=== PATIENT | male | born 1970 | race Caucasian/White ===

== ENCOUNTER 2024-02-12 13:58 | Inpatient (IN) | payer MEDICAID, OTHER ==
[~2024-02-12] VITALS: Ht 175.3 cm; Wt 95.8 kg
[2024-02-12 14:36] LABS: Basophils # (auto) 0 10 ^3/uL (0-0.2); Basophils % (auto) 0.1 % (0.0-2.0); Eosinophils # (auto) 0 10 ^3/uL (0-0.8); Eosinophils % (auto) 0.6 % (0.0-7.0); Hematocrit 44.9 % (41.0-53.0); Hemoglobin 14.9 g/dL (13.5-17.5); Lymphocytes # (auto) 0.6 10 ^3/uL (0.4-5.4); Lymphocytes % (auto) 7.8 % (10.0-50.0); Mean Corpuscular Hemoglobin 28.7 pg (28.0-32.0); Mean Corpuscular Hgb Conc. 33.1 g/dL (32.0-36.0); Mean Corpuscular Volume 86.8 fL (80.0-100.0); Monocytes # (auto) 0.7 10 ^3/uL (0-1.3); Monocytes % (auto) 9.9 % (0.0-12.0); Neutrophils # (auto) 6.1 10 ^3/uL (1.6-8.6); Neutrophils % (auto) 81.6 % (37.0-80.0); Red Blood Cells 5.18 10^6/uL (4.5-5.90); Red Cell Distribution Width 14.7 % (11.8-14.3); White Blood Cell 7.5 10^3/uL (4.4-10.8)
[2024-02-12 14:48] LABS: Chloride 99 mmol/L (98-107); Potassium 4.3 mmol/L (3.5-5.1); Sodium 130 mmol/L (136-145)
[2024-02-12 14:49] LABS: Anion Gap 12 (5-15); Carbon Dioxide 19 mmol/L (20-30)
[2024-02-12 14:50] LABS: Calcium 8.7 mg/dL (8.7-10.4)
[2024-02-12 14:54] LABS: BUN/Creatinine Ratio 15.9 (10.0-20.0); Blood Urea Nitrogen 46 mg/dL (9-23); Glucose 78 mg/dL (74-106)
[2024-02-12 14:55] LABS: Magnesium 2.1 mg/dL (1.6-2.6)
[2024-02-12] MEDS ORDERED: ONDANSETRON HCL 4 MG/2 ML VIAL IV PRN (23:30)
[2024-02-13] VITALS (7 sets, daily range): BP systolic 124–173; BP diastolic 84–115; PULSE 82–109; RESP 10–21; TEMP 97.5–98.2; O2SAT 95–100
[2024-02-13] MEDS: SODIUM CHLORIDE 0.9% 1,000 ML IV ONE (03:14)
[2024-02-13] MEDS: cefTRIAXone 1GM/50ML D5W 50 ML IV ONE (03:15)
[2024-02-13 03:28] LABS: Urine Bacteria MANY /hpf (None Seen); Urine Blood 3+ /uL (Negative); Urine Clarity Ex.Turbid (Clear); Urine Color Dark-Brown (Yellow); Urine Protein, UAD 2+ (Negative); Urine Specific Gravity 1.009 (1.001-1.035); Urine Urobilinogen Normal (Negative); Urine WBC 2455 /hpf (0 - 3); Urine WBC Clumps PRESENT /hpf (None Seen)
[2024-02-13 03:39] LABS: Amphetamine Screen, Urine Pos (NEGATIVE); Barbiturate Scree,Urine Neg (NEGATIVE); Benzodiazephine Screen, Urine Neg (NEGATIVE); Cannabinoid Screen, Urine Pos (NEGATIVE); Cocaine Screen, Urine Neg (NEGATIVE); Opiate Scree,Urine Neg (NEGATIVE); Phencyclidine Screen, Urine Neg (NEGATIVE)
[2024-02-13 05:10] LABS: Basophils # (auto) 0 10 ^3/uL (0-0.2); Basophils % (auto) 0.1 % (0.0-2.0); Eosinophils # (auto) 0 10 ^3/uL (0-0.8); Eosinophils % (auto) 0.2 % (0.0-7.0); Hematocrit 43.4 % (41.0-53.0); Hemoglobin 14.3 g/dL (13.5-17.5); Lymphocytes # (auto) 0.7 10 ^3/uL (0.4-5.4); Lymphocytes % (auto) 10.4 % (10.0-50.0); Mean Corpuscular Hemoglobin 28.8 pg (28.0-32.0); Mean Corpuscular Volume 87.3 fL (80.0-100.0); Monocytes # (auto) 0.6 10 ^3/uL (0-1.3); Neutrophils # (auto) 5.8 10 ^3/uL (1.6-8.6); Neutrophils % (auto) 80.3 % (37.0-80.0); Red Blood Cells 4.98 10^6/uL (4.5-5.90); Red Cell Distribution Width 14.6 % (11.8-14.3); White Blood Cell 7.2 10^3/uL (4.4-10.8)
[2024-02-13 05:27] LABS: Alanine Aminotransferase 23 U/L (7-40); Albumin 4.1 g/dL (3.2-4.8); Alkaline Phosphatase 108 U/L (46-116); Anion Gap 17 (5-15); Aspartate Aminotransferase 24 U/L (13-40); BUN/Creatinine Ratio 12.9 (10.0-20.0); Blood Urea Nitrogen 46 mg/dL (9-23); Calcium 8.7 mg/dL (8.7-10.4); Carbon Dioxide 18 mmol/L (20-30); Chloride 98 mmol/L (98-107); Glucose 80 mg/dL (74-106); Potassium 4.2 mmol/L (3.5-5.1); Sodium 133 mmol/L (136-145)
[2024-02-13 05:28] LABS: Bilirubin, Total 0.3 mg/dL (0.2-1.0); Total Protein 8.3 g/dL (5.7-8.2)
[2024-02-13] MEDS ORDERED: CIPR500T4 PO (09:06)
[2024-02-13] MEDS ORDERED: PREG150C63 PO (09:06)
[2024-02-13] MEDS ORDERED: BACL20TA PO (09:06)
[2024-02-13] MEDS ORDERED: MIDO5TAB4 PO (09:06)
[2024-02-13] MEDS ORDERED: FLUO20CA90 PO (09:06)
[2024-02-13] MEDS: SODIUM CHLORIDE 0.9% 1,000 ML IV SCH (21:00)
[2024-02-14] MEDS: cefTRIAXone 1GM/50ML D5W 50 ML IV SCH (03:06)
[2024-02-14 05:00] VITALS: BP 104/60; PULSE 90; RESP 20; TEMP 97.6; O2SAT 96
[2024-02-14] MEDS: HYDROcodone-ACET 5/325MG TAB PO PRN (05:08)
[2024-02-14 07:30] VITALS: TEMP 36.4
[2024-02-14 08:33] VITALS: BP 121/72; PULSE 91; RESP 15; TEMP 97.4; O2SAT 95
[2024-02-14 13:00] VITALS: BP 82/42; PULSE 80; RESP 15; TEMP 97.3; O2SAT 96
[2024-02-14 15:37] LABS: Chloride 105 mmol/L (98-107); Potassium 4.4 mmol/L (3.5-5.1); Sodium 136 mmol/L (136-145)
[2024-02-14 15:38] LABS: Anion Gap 16 (5-15); Carbon Dioxide 15 mmol/L (20-30)
[2024-02-14 15:39] LABS: Calcium 8.9 mg/dL (8.5-10.1)
[2024-02-14 15:43] LABS: BUN/Creatinine Ratio 14.8 (10.0-20.0); Blood Urea Nitrogen 47 mg/dL (9-23); Glucose 100 mg/dL (74-106)
[2024-02-14 17:00] VITALS: BP 78/33; PULSE 79; RESP 15; TEMP 97.4; O2SAT 93
[2024-02-14 21:00] VITALS: BP 110/67; PULSE 80; RESP 17; TEMP 97.6; O2SAT 96
[2024-02-15 01:00] VITALS: BP 120/71; PULSE 83; RESP 17; TEMP 98; O2SAT 96
[2024-02-15 05:00] VITALS: BP 133/80; PULSE 96; RESP 18; TEMP 97.3; O2SAT 98
[2024-02-15 09:00] VITALS: BP 123/76; PULSE 97; RESP 20; O2SAT 96
[2024-02-15] MEDS ORDERED: LEVO750T40 PO (11:59)
[2024-02-15 12:53] VITALS: BP 136/84; PULSE 98; RESP 20; TEMP 98.7; O2SAT 98
[2024-02-15 20:00] VITALS: RESP 20
[2024-02-15 21:00] VITALS: BP 125/81; PULSE 102; RESP 18; TEMP 98.1; O2SAT 94
[2024-02-16 05:00] VITALS: BP 194/115; PULSE 90; RESP 20; TEMP 97.4; O2SAT 98
[2024-02-16] MEDS: ACETAMINOPHEN 325 MG TAB PO PRN (05:42)
[2024-02-16 06:30] VITALS: BP 145/100; PULSE 77
[2024-02-16 09:00] VITALS: BP 122/50; PULSE 81; RESP 18; TEMP 97.5; O2SAT 93
[2024-02-16] MEDS ORDERED: VANCOMYCIN PER PHARMACY 0 MG IV SCH (09:15)
[2024-02-16] MEDS: FLUoxetine HCL 20 MG CAP PO SCH (10:13)
[2024-02-16] MEDS: BACLOFEN 10 MG TAB PO PRN (10:13)
[2024-02-16] MEDS: VANCOMYCIN 1GM/200ML 200 ML IV ONE (10:15)
[2024-02-16] MEDS: levoFLOXacin 500MG 100 ML IV SCH (12:33)
[2024-02-16 13:00] VITALS: BP 159/117; PULSE 83; RESP 22; TEMP 97.8; O2SAT 95
[2024-02-16] MEDS: BACLOFEN 10 MG TAB PO SCH (14:18)
[2024-02-16] MEDS: PREGABALIN CAPSULE 75 MG CAP PO SCH (14:18)
[2024-02-16 15:19] LABS: Potassium 3.6 mmol/L (3.5-5.1)
[2024-02-16 15:21] LABS: Calcium 8.8 mg/dL (8.7-10.4)
[2024-02-16 15:25] LABS: BUN/Creatinine Ratio 12.6 (10.0-20.0)
[2024-02-16 15:27] LABS: Albumin 3.7 g/dL (3.2-4.8)
[2024-02-16 15:28] LABS: Phosphorus 1.7 mg/dL (2.4-5.1)
[2024-02-16] MEDS ORDERED: VANCOMYCIN 750mg/150ml 150 ML IV SCH (16:00)
[2024-02-16 17:00] VITALS: BP 120/71; PULSE 77; RESP 18; TEMP 97.5; O2SAT 96
[2024-02-16] MEDS: VANCOMYCIN 750mg/150ml 150 ML IV SCH (22:11)
[2024-02-17 05:14] VITALS: BP 148/95; PULSE 82; RESP 18; TEMP 97.6; O2SAT 94
[2024-02-17 06:13] LABS: Potassium 3.8 mmol/L (3.5-5.1)
[2024-02-17 06:14] LABS: Calcium 8.7 mg/dL (8.5-10.1)
[2024-02-17 06:19] LABS: BUN/Creatinine Ratio 11.2 (10.0-20.0)
[2024-02-17 06:21] LABS: Albumin 3.8 g/dL (3.2-4.8); Phosphorus 2.1 mg/dL (2.4-5.1)
[2024-02-17 08:05] VITALS: BP 137/89; PULSE 84; RESP 20; TEMP 97.7; O2SAT 94
[2024-02-17 12:10] VITALS: BP 121/77; PULSE 77; RESP 20; TEMP 97.4; O2SAT 96
[2024-02-17 16:10] VITALS: BP 99/58; PULSE 81; RESP 20; TEMP 97.6; O2SAT 96
[2024-02-17 18:00] VITALS: BP 110/70; PULSE 89; RESP 17; TEMP 98.1; O2SAT 95
[2024-02-18 05:00] VITALS: BP 112/77; PULSE 75; RESP 19; TEMP 98.3; O2SAT 92
[2024-02-18 06:31] LABS: Basophils # (auto) 0 10 ^3/uL (0-0.2); Basophils % (auto) 0.7 % (0.0-2.0); Eosinophils # (auto) 0.3 10 ^3/uL (0-0.8); Eosinophils % (auto) 8.7 % (0.0-7.0); Hemoglobin 12.1 g/dL (13.5-17.5); Lymphocytes # (auto) 1.3 10 ^3/uL (0.4-5.4); Mean Corpuscular Hemoglobin 28.5 pg (28.0-32.0); Mean Corpuscular Hgb Conc. 32.7 g/dL (32.0-36.0); Mean Corpuscular Volume 87.2 fL (80.0-100.0); Monocytes # (auto) 0.4 10 ^3/uL (0-1.3); Monocytes % (auto) 10.3 % (0.0-12.0); Neutrophils # (auto) 1.7 10 ^3/uL (1.6-8.6); Neutrophils % (auto) 45.3 % (37.0-80.0); Nucleated Red Blood Cells % 0.1 %; Red Blood Cells 4.24 10^6/uL (4.5-5.90); Red Cell Distribution Width 14.7 % (11.8-14.3); White Blood Cell 3.7 10^3/uL (4.4-10.8)
[2024-02-18 06:49] LABS: Chloride 114 mmol/L (98-107); Potassium 3.3 mmol/L (3.5-5.1); Sodium 142 mmol/L (136-145)
[2024-02-18 06:50] LABS: Anion Gap 5 (5-15); Calcium 7.9 mg/dL (8.5-10.1); Carbon Dioxide 23 mmol/L (20-30)
[2024-02-18 06:55] LABS: BUN/Creatinine Ratio 18.3 (10.0-20.0); Blood Urea Nitrogen 13 mg/dL (9-23); Glucose 82 mg/dL (74-106)
[2024-02-18 08:36] VITALS: BP 138/91; PULSE 76; RESP 20; TEMP 97.6; O2SAT 91
[2024-02-18 13:00] VITALS: BP 124/82; PULSE 66; RESP 16; TEMP 97.4; O2SAT 94
[2024-02-18 17:00] VITALS: BP 150/101; PULSE 89; RESP 20; TEMP 97.8; O2SAT 94
[2024-02-18 21:00] VITALS: BP 88/40; PULSE 77; RESP 17; TEMP 98; O2SAT 93
[2024-02-18] MEDS: VANCOMYCIN 750mg/150ml 150 ML IV SCH (23:45)
[2024-02-19 01:00] VITALS: BP 99/57; PULSE 84; RESP 16; TEMP 98.4; O2SAT 95
[2024-02-19 09:00] VITALS: BP 115/73; PULSE 79; RESP 18; TEMP 97.7; O2SAT 94
[2024-02-19] MEDS ORDERED: DOCUSATE SOD 100 MG CAP PO PRN (12:15)
[2024-02-19 13:00] VITALS: BP 114/63; PULSE 71; RESP 18; TEMP 97.3; O2SAT 96
[2024-02-19] MEDS ORDERED: BACDST PO (13:00)
[2024-02-19] MEDS ORDERED: HYDR-4798 PO (13:00)
[2024-02-19] MEDS: POLYETHYLENE GLYCOL 17 GM PWDR PO ONE (14:20)
[2024-02-19] MEDS: MIDODRINE HCL 10 MG TAB PO ONE (16:30)
[2024-02-19 17:00] VITALS: BP 136/102; PULSE 83; RESP 18; TEMP 97.5; O2SAT 95
== END 2024-02-19 19:35 | disposition home or self-care (01) | DRG 466 ==
LOC: EDBD 13:58 → ER 13:58 → OVERFLOW 23:32 → WEST WING 02-13 08:01 → EAST 02-18 21:31
PROVIDERS: ADMIT Nurse Practitioner; ATTEND Internal Medicine
DX: T83.518A Infection and inflammatory reaction due to other urinary catheter, initial encounter (principal); N17.0 Acute kidney failure with tubular necrosis; G92.8 Other toxic encephalopathy; N39.0 Urinary tract infection, site not specified; G82.20 Paraplegia, unspecified; I10 Essential (primary) hypertension; F19.10 Other psychoactive substance abuse, uncomplicated; B96.5 Pseudomonas (aeruginosa) (mallei) (pseudomallei) as the cause of diseases classified elsewhere; B95.62 Methicillin resistant Staphylococcus aureus infection as the cause of diseases classified elsewhere; M62.838 Other muscle spasm; Z93.1 Gastrostomy status; Z88.0 Allergy status to penicillin; Z93.3 Colostomy status; Z79.899 Other long term (current) drug therapy; Y84.8 Other medical procedures as the cause of abnormal reaction of the patient, or of later complication, without mention of misadventure at the time of the procedure; Y92.89 Other specified places as the place of occurrence of the external cause
CPT/HCPCS: 36415; 70450; 71045; 71250; 74176; 80048; 80053; 80069; 80202; 80307; 81001; 82565; 82962; 83735; 85025; 87040; 87086; 87088; 87186; 93005; G0378; J1956